=== PATIENT | female | born 1945 | race Caucasian/White ===

== ENCOUNTER 2017-12-01 10:05 | Outpatient (CLI) | payer MEDICARE ==
[2017-12-01 11:46] LABS: Mean Corpuscular HGB CONC 34.3 g/dL (32.0-36.0); Mean Corpuscular Volume 90.6 fL (78.0-98.0); Mean Platelet Volume 6.1 fL (7.4-10.4); Platelet Count 219 thou/uL (130-400); RBC Distribution Width 11.7 % (11.5-14.5); Red Blood Cell (RBC) Count 3.86 mill/uL (4.20-5.40); White Blood Cell (WBC) Count 7.7 thou/uL (4.8-10.8)
[2017-12-01 11:53] LABS: PTT 27.6 SEC (22.9-36.1); Prothrombin Time 13.5 SEC (12.0-14.7)
[2017-12-01 12:07] LABS: Anion Gap 11 mmol/L (10-20); BUN (Urea Nitrogen) 9 mg/dL (9.8-20.1); Calc. Creatinine Clearance 0 mL/min (70-130); Calcium 9.4 mg/dL (7.8-10.44); Carbon Dioxide 28 mmol/L (23-31); Chloride 99 mmol/L (98-107); Estimated GFR-MDRD 73; Glucose 104 mg/dL (83-110); Potassium 4.3 mmol/L (3.5-5.1); Sodium 134 mmol/L (136-145)
== END 2017-12-01 10:06 | disposition home or self-care (01) ==
LOC: LABBT 10:05
PROVIDERS: ATTEND Surgery
DX: Z01.818 Encounter for other preprocedural examination (principal); M51.16 Intervertebral disc disorders with radiculopathy, lumbar region
CPT/HCPCS: 80048; 85027; 85610; 85730; 93005; 93010

== ENCOUNTER 2017-12-02 12:51 | Day surgery (SDC) | payer MEDICARE ==
[2017-12-01 10:38] VITALS: BMI 27.1
[2017-12-02] MEDS ORDERED: PROPOFOL 200 MG/20 ML VIAL ONE (13:02)
[2017-12-02] MEDS ORDERED: Ondansetron HCl/PF 4 MG/2 ML Vial ONE (13:02)
[2017-12-02] MEDS ORDERED: ePHEDrine/0.9% NaCl/PF SYRINGE 50 mg/10 ml ONE (13:02)
[2017-12-02] MEDS ORDERED: Glycopyrrolate 0.2 MG/ML 5 ML SYRINGE ONE (13:02)
[2017-12-02] MEDS ORDERED: Lidocaine 1% PF 5 ML VIAL ONE (13:02)
[2017-12-02] MEDS ORDERED: Dexamethasone 20 MG/5 ML VIAL ONE (13:02)
[2017-12-02] MEDS ORDERED: PHENYLEPHRINE-NS 100 MCG/ML 10 ML SYRINGE ONE (13:02)
[2017-12-02] MEDS ORDERED: CEFAZOLIN/Water 2 GM/20 ML SYRINGE ONE (13:40)
[2017-12-02] MEDS ORDERED: Fentanyl 100 MCG/2 ML VIAL ONE ×4 (15:16→17:48)
[2017-12-02] MEDS ORDERED: Thrombin 5000 UNITS/5 ML VIAL ONE (15:57)
[2017-12-02] MEDS ORDERED: Sodium Chloride 0.9% 10 ML ONE (16:01)
[2017-12-02] MEDS ORDERED: Bacitracin Zinc Ointment 30 gm TUBE ONE (16:01)
[2017-12-02] MEDS ORDERED: HYDROmorphone 0.5 MG/0.5 ML SYRINGE ONE (16:56)
[2017-12-02] MEDS ORDERED: Fleet Enema 133 ML BOT PR SCH (17:30)
[2017-12-02] MEDS ORDERED: Bisacodyl 10 MG SUPP PR PRN (17:30)
[2017-12-02] MEDS ORDERED: Acetaminophen 325 MG TAB PO PRN (17:30)
[2017-12-02] MEDS ORDERED: tiZANidine HCl 4 MG TAB PO PRN (17:30)
[2017-12-02] MEDS ORDERED: traMADol HCl 50 MG TAB PO PRN (17:30)
[2017-12-02] MEDS ORDERED: Promethazine HCl 25 MG/ML VIAL IM PRN ×2 (17:30→17:50)
[2017-12-02] MEDS ORDERED: Mag-Al 1200 mg/1200 mg/30 ML UDCUP PO PRN (17:30)
[2017-12-02] MEDS ORDERED: HYDROcodone/Acetaminophen 7.5/325 mg Tablet PO PRN (17:30)
[2017-12-02] MEDS ORDERED: Milk Of Magnesia 30 ML UDCUP PO PRN (17:30)
[2017-12-02] MEDS ORDERED: Acetaminophen/Codeine 30-300mg Tablet PO PRN (17:30)
[2017-12-02] MEDS ORDERED: Promethazine HCl 25 MG/ML VIAL SLOW IVP PRN (17:50)
[2017-12-02] MEDS ORDERED: HYDROmorphone 2 MG/ML VIAL SLOW IVP PRN (17:50)
[2017-12-02] MEDS ORDERED: Ondansetron HCl/PF 4 MG/2 ML Vial IVP PRN (17:50)
[2017-12-02] MEDS: Sodium Chloride 0.9% 1,000 ML IV SCH (20:34)
[2017-12-02] MEDS ORDERED: Nadolol 40 MG TAB PO SCH (21:00)
[2017-12-02] MEDS ORDERED: ALPRAZolam 0.25 MG TAB PO SCH (21:00)
[2017-12-02] MEDS ORDERED: Lovastatin 20 MG TAB PO SCH (21:00)
[2017-12-02] MEDS: Gabapentin 100 MG CAP PO SCH (21:19)
[2017-12-02] MEDS: CEFAZOLIN/Water 2 GM/20 ML SYRINGE SLOW IVP SCH (21:22)
[2017-12-03] MEDS: CEFAZOLIN/Water 2 GM/20 ML SYRINGE SLOW IVP SCH (05:07)
[2017-12-03] MEDS: Sodium Chloride 0.9% 1,000 ML IV SCH (05:07)
[2017-12-03 08:21] VITALS: BP 134/69; TEMP 97.9
[2017-12-03] MEDS ORDERED: FLUoxetine HCl 20 MG CAP PO SCH (09:00)
[2017-12-03] MEDS ORDERED: metFORMIN XR 500 MG TAB PO SCH (09:00)
[2017-12-03] MEDS: Gabapentin 100 MG CAP PO SCH (09:00)
--- NOTE | 2017-12-03 12:52 | OP ---
DATE OF PROCEDURE: 12/02/2017 OR: 12 WOUND TYPE: Type 1 wound. SURGEON: Cali Boone M.D. ADJUSTER ARBITRATOR: Jerzy Richards PA-C PREPROCEDURE DIAGNOSES: Left L4 radiculopathy with left L4-L5 foraminal and far lateral disk extrusi on. POSTPROCEDURE DIAGNOSES: Left L4 radiculopathy with left L4-L5 foraminal and far lateral disk extrus ion. PROCEDURE: 1. Left L4-L5 transfacet lateral and far lateral approach for diskectomy. 2. Use of operative microscope for microdissection. DESCRIPTION OF PROCEDURE: After informed consent was obtained from the patient, the patient was brou ght to OR 12. Proper patient pause and identification was carried out. She was placed under excelle nt general endotracheal anesthesia and positioned prone on the OR table. All appropriate points were padded. Midline linear flaco was drawn out over the L4-L5 segment allowing for exposure up to the L4 foramen and the L4 pedicle. This region was sterilely cleansed, prepared, and draped. After final proper patient pause and identification, a left L4-L5 exposure was performed with a sharp, monopolar and blunt dissection. Localization film confirmed our area of interest. We then performed a left L4 -L5 transfacet approach to the left L4 nerve root. Disk material was identified. The microscope was brought in and a diskectomy was performed. This was a decompression to the exiting left L4 root due to the lateral and far lateral disk extrusion, we had an excellent diskectomy. Copious irrigation o ccurred throughout as did maximizing hemostasis. The wound was then closed in anatomic layers follow ing the sprinkling of vancomycin powder. The patient then emerged from anesthesia.
--- NOTE | 2017-12-03 22:47 | DIS ---
DATE OF ADMISSION: 12/02/2017 DATE OF DISCHARGE: 12/03/2017 Jerzy Richards PA-C dictating for Cali Boone MD DISCHARGE DIAGNOSES: 1. Lumbar radiculopathy. 2. Lumbar stenosis with herniated nucleus pulposus. HOSPITAL COURSE: Ms. Hill was admitted to [facility] on 12/02/2017 to undergo a left-side d L4-L5 transfacet approach for diskectomy. The patient's surgery was without complication, and she required 1 overnight stay on the surgical unit. At the time of discharge, she had good strength in t he bilateral lower extremities with intact sensation to light touch. She had a complete resolution o f the left lower extremity symptoms she had preoperatively and had no incisional back pain. She met criteria for discharge and was given appropriate patient education and followup appointments. Ample opportunity was given to the patient and her friend to discuss her questions and concerns, and they w ill follow up as scheduled on an outpatient basis.
== END 2017-12-03 11:13 | disposition home or self-care (01) ==
LOC: SDC 12:51 → SURG B 19:13 → SDC 12-03 11:13
PROVIDERS: ATTEND Surgery
PROC: 0SB20ZZ Excision of Lumbar Vertebral Disc, Open Approach (ICD-10-PCS; principal; 2017-12-02)
DX: M51.16 Intervertebral disc disorders with radiculopathy, lumbar region (principal); M48.061 Spinal stenosis, lumbar region without neurogenic claudication; F17.200 Nicotine dependence, unspecified, uncomplicated; Z79.82 Long term (current) use of aspirin; Z79.899 Other long term (current) drug therapy
CPT/HCPCS: 36416; 76001; A4216; J1100; J1170; J2001; J2405; J2704; J3010; J3370; J3490